=== PATIENT | male | born 1970 | race Two or more races ===

== ENCOUNTER 2018-01-04 05:46 | Day surgery (SDC) | payer OTHER ==
[2018-01-04] VITALS (16 sets, daily range): BP systolic 106–124; BP diastolic 67–84
[~2018-01-04] VITALS: Ht 160 cm; Wt 72.6 kg
[2018-01-04] MEDS ORDERED: oxyCONTIN 20mg tab ORAL ONE (06:00)
[2018-01-04] MEDS ORDERED: ceFAZolin 1gm in D5W 55ml IVP ONE (06:00)
[2018-01-04] MEDS ORDERED: celeBREX 200mg Cap **SURGERY PATIENTS ONLY ORAL ONE (06:00)
[2018-01-04] MEDS ORDERED: NKM (06:27)
[2018-01-04] MEDS ORDERED: Morphine Sulfate PF 10 ML ONE (07:00)
[2018-01-04] MEDS ORDERED: Kenalog-40 1ml Vial ONE (07:01)
[2018-01-04] MEDS ORDERED: LR 1000ml 1,000 ML IVLG SCH (07:01)
[2018-01-04] MEDS ORDERED: Lidocaine 1% 10mg/ml/Epi 0.005mg/ml 30ml vial INJ ONE (07:01)
[2018-01-04] MEDS ORDERED: EPINEPHrine 1mg/1ml Amp ONE (07:02)
--- NOTE | 2018-01-04 07:04 | Anethesia Preoperative Eval ---
Anesthesia Pre-op PMH/ROS General Date of Evaluation: Jan 04, 2018 Time of Evaluation: 07:26 Anesthesiologist: Magan ASA Score: ASA 2 Mallampati Score Class I : Soft palate, uvula, fauces, pillars visible Class II: Soft palate, uvula, fauces visible Class III: Soft palate, base of uvula visible Class IV: Only hard plate visible Mallampati Classification: Class I Surgeon: Quincy Diagnosis: R Knee Pain Surgical Procedure: R Knee Arthroscopy Anesthesia History: none Family History: no anesthesia problems Allergies: Coded Allergies: No Known Allergies (Unverified , 01/04/18) Medications: see eMAR Past Medical History Other: obesity - BMI 30 Anesthesia Pre-op Phys. Exam Physician Exam Last Vital Signs Date Time Temp Pulse Resp B/P (MAP) Pulse Ox O2 Delivery O2 Flow Rate FiO2 01/04/18 06:26 98.1 54 18 111/69 (83) 98 98.1 01/04/18 06:15 Room Air Constitutional: NAD Neurologic: CN 2-12 intact Cardiovascular: RRR Respiratory: CTA Gastrointestinal: S/NT/ND Airway Exam Mallampati Score: Class I MO: full ROM: full Teeth: intact Anesthesia Pre-op A/P Risk Assessment & Plan Assessment: ASA 2 Plan: GA, BIS Status Change Before Surgery: No Pre-Antibiotics Dru Gram Ancef IV Given Within 1 Hr of Incision: Yes Time Given: 07:46 Joey Carrero MD Jan 04, 2018 07:04
--- NOTE | 2018-01-04 07:07 | Immediate Post-Op Evaluation ---
Immediate Post-Op Evalulation Immediate Post-Op Evalulation Procedure: R Knee Arthroscopy Date of Evaluation: Jan 04, 2018 Time of Evaluation: 09:48 IV Fluids: 300 Blood Products: 0 Estimated Blood Loss: 8 Urinary Output: 0 Blood Pressure Systolic: 112 Blood Pressure Diastolic: 64 Pulse Rate: 67 Respiratory Rate: 16 O2 Sat by Pulse Oximetry: 100 Temperature (Fahrenheit): 98.9 Pain Score (1-10): 2 Nausea: No Vomiting: No Complications 0 Patient Status: awake, reacts, patent, none Hydration Status: adequate Dru Gram Ancef IV Given Within 1 Hr of Incision: Yes Time Given: 07:46 Joey Carrero MD Jan 04, 2018 07:07
--- NOTE | 2018-01-04 07:08 | 48 Hour Post Anesthesia Eval ---
Post Anesthesia Evaluation Procedure: R Knee Arthroscopy Date of Evaluation: Jan 04, 2018 Time of Evaluation: 11:54 Blood Pressure Systolic: 110 0: 67 Pulse Rate: 78 Respiratory Rate: 18 Temperature (Fahrenheit): 98.4 O2 Sat by Pulse Oximetry: 98 Airway: patent Nausea: No Vomiting: No Pain Intensity: 2 Hydration Status: adequate Cardiopulmonary Status: Stable Mental Status/LOC: patient returned to baseline Follow-up Care/Observations: 0 Post-Anesthesia Complications: 0 Follow-up care needed: ready to discharge Joey Carrero MD Jan 04, 2018 07:08
[2018-01-04] MEDS ORDERED: Sodium Chloride 10ml vial INJ ONE (07:12)
[2018-01-04] MEDS ORDERED: Lidocaine 1% MPF 10mg/ml 5ml ONE (07:12)
[2018-01-04] MEDS ORDERED: Dexamethasone 4mg/ml vial ONE (07:12)
[2018-01-04] MEDS ORDERED: Propofol 200mg/20ml IV ONE (07:12)
[2018-01-04] MEDS: Bupivacaine 0.25% Inj 30ml INJ ONE ×2 (07:13→07:14)
[2018-01-04] MEDS ORDERED: Atropine Inj 1mg/10ml Syr IV PRN (07:15)
[2018-01-04] MEDS ORDERED: LORazepam Inj 2mg/ml 1ml IV PRN (07:15)
[2018-01-04] MEDS ORDERED: Midazolam 2mg/2ml Inj IVP PRN (07:15)
[2018-01-04] MEDS ORDERED: fentaNYL 100 mcg/2 mL IV PRN (07:15)
[2018-01-04] MEDS ORDERED: Labetalol 5mg/ml 20ml vial IV PRN (07:15)
[2018-01-04] MEDS ORDERED: DiphenhydrAMINE 50mg/ml Inj IVP PRN (07:15)
[2018-01-04] MEDS ORDERED: Metoclopramide 10mg/2ml Inj IVP PRN (07:15)
[2018-01-04] MEDS ORDERED: HYDROcodone/Acetamin 7.5/325 tab ORAL PRN (07:15)
[2018-01-04] MEDS ORDERED: Hydromorphone 0.5mg/0.5ml inj IVP PRN (07:15)
[2018-01-04] MEDS ORDERED: oxyCODONE HCL/Acetaminophen 5/325mg ORAL PRN (07:15)
[2018-01-04] MEDS ORDERED: Ketorolac 30mg Inj IV PRN ×2 (07:15)
[2018-01-04] MEDS ORDERED: Norco 5mg/325mg tab ORAL PRN ×2 (07:15→08:00)
[2018-01-04] MEDS ORDERED: NS Irrig 4000ml IRRIG ONE (07:30)
[2018-01-04] MEDS ORDERED: Sterile Water For Irrig 2000ml IRRIG ONE (07:30)
[2018-01-04] MEDS ORDERED: LR 1000ml ONE (07:30)
--- NOTE | 2018-01-04 07:46 | Pre-Procedure Note/Attestation ---
Pre-Procedure Note/Attestation Complete Prior to Procedure Planned Procedure: right Procedure Narrative: knee arthroscopy, possible menisectomy, possible synocetomy Indications for Procedure Pre-Operative Diagnosis: right knee internal derangement Attestation I attest that I discussed the nature of the procedure; its benefits; risks and complications; and alternatives (and the risks and benefits of such alternatives ), prior to the procedure, with the patient (or the patient's legal sales representative groceries). I attest that, if there was a reasonable possibility of needing a blood transfusion, the patient (or the patient's legal sales representative groceries) was given the [facility] standardized written summary, pursuant to the Ismael Antonia Blood Safety Act ([place] Health and Safety Code # 1645, as amended). I attest that I re-evaluated the patient just prior to the surgery and that there has been no change in the patient's H&P, except as documented below: Shayan Mathew MD Jan 04, 2018 07:46
--- NOTE | 2018-01-04 07:47 | Operative Note - PDOC ---
Operative Note Operative Note Pre-op Diagnosis: right knee internal derangement Procedure: see op report Post-op Diagnosis: same as pre-op plus Operative Findings: consistent w/pre-op dx studies Anesthesia: MAC Specimen: none Complications: none Condition: stable Estimated Blood Loss: none Implant(s) used?: No Shayan Mathew MD Jan 04, 2018 07:47
[2018-01-04] MEDS ORDERED: D5 1/2NS 1,000 ML IV SCH (08:00)
[2018-01-04] MEDS ORDERED: Tylenol #3 tab (300mg/30mg) ORAL PRN (08:00)
[2018-01-04] MEDS ORDERED: HYDROmorphone 1mg/ml Carpuject SUBQ PRN (08:00)
--- NOTE | 2018-01-04 11:30 | Operative Note - Dictated ---
DATE OF OPERATION: 01/04/2018 NOTE: "POOR AUDIO QUALITY" PREOPERATIVE DIAGNOSIS: Internal derangement, right knee. He had a possible meniscal tear. POSTOPERATIVE DIAGNOSES: 1. Right knee anterior horn of medial meniscus tear. 2. Grade 3 chondral damage, middle facet with chondral flap. 3. Hypertrophic fat pad syndrome/synovial tissue. PROCEDURE: 1. Right knee diagnostic arthroscopy and partial medial meniscectomy. 2. Synovectomy/excision of fat pad of medial, lateral, and patellofemoral compartment. 3. Gentle chondroplasty, patellofemoral compartment. SURGEON: Shayan Mathew M.D. ANESTHESIA: MAC with local. INDICATION FOR PROCEDURE: The patient is a pleasant 47-year-old gentleman who has had continued pain in the right knee. He had MRI which showed possible tear of the meniscus. Therefore, indicated for operative fixation as he failed conservative treatment. Risks, limitations, expectations, and complications of procedure were discussed in detail. All questions were addressed. DESCRIPTION OF PROCEDURE: After informed consent was obtained, the patient was brought to the operating room. We placed the patient under monitored anesthesia control. A tourniquet was applied to the right proximal thigh. Right leg was prepped and draped in sterile manner. Time-out was performed. The portal sites were injected with 0.25% Marcaine with epinephrine. Inferolateral stab incision was then made. Trocar was introduced into the patellofemoral compartment. There was hypertrophic fat pad in the patellofemoral compartment making visualization somewhat difficult. Medial gutter was entered. There was difficulty entering the medial compartment. Therefore, medial working portal was established. Synovectomy and excision of fat pad was completed allowing visualization. Once this was done, there was a flap of the anterior horn of medial meniscus which was debrided. Medial compartment was entered. The posterior horn of medial meniscus was evaluated and was noted to be intact. There was no chondral damage. The excision of the anterior horn of medial meniscus was completed. The ACL was probed and noted to be intact. Lateral compartment was entered and was free of meniscal damage. The camera was repositioned in the patellofemoral compartment. Excision of the fat pad and synovectomy was completed. Once this was done, the area of the medial patellar facet was evaluated. There was a chondral flap which was relatively stable. It was felt that formal chondroplasty would not be required. At this point, the camera was removed. Portal sites were closed with 3-0 Monocryl sutures. Steri-Strips and a sterile dressing were applied. The patient was awoken and taken to recovery room with stable vital signs. ESTIMATED BLOOD LOSS: None. COMPLICATIONS: None. SPECIMENS: None. IMPLANTS: None. Shayan Mathew M.D. DR: Dominick JOB#: [id number] CC: JOSE
== END 2018-01-04 10:40 | disposition home or self-care (01) ==
LOC: SUR 05:46
DX: M23.211 Derangement of anterior horn of medial meniscus due to old tear or injury, right knee (principal); M79.4 Hypertrophy of (infrapatellar) fat pad; M67.261 Synovial hypertrophy, not elsewhere classified, right lower leg; E66.9 Obesity, unspecified; Z68.30 Body mass index [BMI] 30.0-30.9, adult
CPT/HCPCS: 29876; 29881; J0171; J0690; J1100; J1885; J2250; J2274; J2405; J2704; J3010; J3301; J3490; J7120; 94003; 94150